=== PATIENT | male | born 1975 | race Caucasian/White ===

== ENCOUNTER → 2021-11-09 | Outpatient (CLI) | payer OTHER ==
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
== END | disposition home or self-care (01) ==
LOC: RADUSWWP 09:02
PROVIDERS: ATTEND Urology
DX: R31.1 Benign essential microscopic hematuria (principal)
CPT/HCPCS: 76770

== ENCOUNTER 2022-03-23 13:07 | Emergency (ER) | payer OTHER ==
[2022-03-23 13:25] VITALS: RESP 18; TEMP 98.1
[2022-03-23] MEDS ORDERED: DIPH,PERTUS(ACELL)TETVAC-LF 0.5 ML VIAL IM ONE (13:51)
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
[2022-03-23 14:41] LABS: Appearance,Urine Turbid (Clear); Bacteria,Urine Rare /hpf; Bilirubin,Urine Negative (Negative); Blood,Urine Large (Negative); Color,Urine Red; Glucose,Urine (UA) Negative (Negative); Ketones,Urine Negative (Negative); Leukocyte Esterase,Urine Large (Negative); Nitrite,Urine Negative (Negative); Protein,Urine 2+ (Negative); RBC,Urine >182 /hpf (0-5); Urobilinogen,Urine <2.0 mg/dL (<2.0); WBC,Urine >182 /hpf (0-5)
[2022-03-23 14:42] LABS: Specific Gravity,Urine 1.028 (1.001-1.035)
[2022-03-23] MEDS ORDERED: cefTRIAXone 1,000 MG VIAL (IM USE) IM STA (16:31)
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
[2022-03-23 17:58] VITALS: BP 141/106; PULSE 95
== END 2022-03-23 19:36 | disposition home or self-care (01) ==
LOC: EC 13:07
DX: T24.211A Burn of second degree of right thigh, initial encounter (principal); T21.26XA Burn of second degree of male genital region, initial encounter; Z23 Encounter for immunization; T31.0 Burns involving less than 10% of body surface; X08.8XXA Exposure to other specified smoke, fire and flames, initial encounter; Y92.009 Unspecified place in unspecified non-institutional (private) residence as the place of occurrence of the external cause
CPT/HCPCS: 81001; 87086; 90715; 99283; 96372; 90471; J0696